=== PATIENT | female | born 1965 | race Caucasian/White ===

== ENCOUNTER 2016-11-19 19:30 | Emergency (ER) | payer OTHER ==
[2016-11-19] MEDS ORDERED: ZOFRAN ODT PO ONE (20:32)
[2016-11-19] MEDS ORDERED: NORCO-7.5 PO ONE (20:32)
--- NOTE | 2016-11-19 20:35 | PROVIDER DOCUMENTATION ---
HPI-Musculoskeletal Pain/Inj - GENERAL Chief Complaint: Extremity Injury Stated Complaint: @1700 RT KNEE INJURY Time Seen by Provider: 11/19/16 20:26 Source: patient - HX OF PRESENT ILLNESS-MUSKULOSKELTAL Nature of Presenting Problem: This pt presents today c complaints of R sided knee pain and swelling after she "took a step funny". She denies any falls. No loss of motor function or sensation. Pt is ambulating. No other injuries or complaints. Quality of Pain: reports: aching Severity in ED: moderate Onset/Duration: 4-6 hours ago Timing: still present Modifying Factors: improves with: movement, palpation Any recent injury?: Yes Locality of Occurance: Home Similar Symptoms Previously?: No Recently seen or treated by another doctor?: No Review of Systems - Adult - REVIEW OF SYSTEMS - ADULT Constitutional: reports: no symptoms reported. denies: chills, fatique Eyes: reports: no symptoms reported. denies: discharge, dry eyes Ears, Nose, Mouth & Throat: reports: no symptoms reported. denies: ear discharge, ear pain Cardiovascular: reports: no symptoms reported. denies: chest pain, edema Respiratory: reports: no symptoms reported. denies: chronic cough, cough Gastrointestinal: reports: no symptoms reported. denies: abdominal pain, hematemesis Genitourinary: reports: no symptoms reported. denies: dysuria, discharge Musculoskeletal: reports: joint pain, joint swelling. denies: bone pain, back pain Integumentary: reports: no symptoms reported. denies: hives, hair loss Neurological: reports: no symptoms reported. denies: ataxia, dizziness/vertigo Psychiatric: reports: no symptoms reported. denies: anxiety, anti-depressant use Endocrine: reports: no symptoms reported Hematologic/Lymphatic: reports: no symptoms reported Allergic/Immunologic: reports: no symptoms reported All Other Systems: Reviewed and Negative Past History - Adult - PAST MEDICAL HISTORY-ADULT Review of Records: reports: Old Records Reviewed, Nursing Assessment Review, Medications Reviewed, Social history reviewed & non-contributory. Major Childhood Illnesses: reports: denies history Cardiovascular: reports: denies history Respiratory: reports: denies history Gastrointestinal: reports: denies history Obstetrical/Gynecological: reports: denies history Genitourinary: reports: denies history Musculoskeletal: reports: denies history Neurological: reports: denies history Endocrine/Immune: reports: Diabetes Other Conditions: reports: denies history - PRIOR SURGERIES/PROCEDURES Surgical/Procedure History: reports: cholecystectomy, orthopedic (extremity), other (tubal) - IMMUNIZATION STATUS Childhood Immunizations: See Nurse Assessment Flu Vaccine: See Nurse Assessment Physical Exam-Injury Related - Physical Exam-Injury Related Initial Vital Signs Reviewed: Yes General Appearance: appears well, alert, no apparent distress Eyes: PERRL/EOMI, pink conjunctivae Head, Ears, Nose, Mouth & Throat: normocephalic/atraumatic, moist mucous membranes, normal ENT inspection Neck: non-tender, full range of motion, supple, normal inspection Respiratory: chest non-tender, lungs clear, normal breath sounds Cardiovascular: normal peripheral pulses, regular rate, rhythm Peripheral Pulses: radial (R): 2+, radial (L): 2+ Abdominal Exam: normal bowel sounds, non tender, soft Back Exam: normal inspection, no CVA tenderness, no vertebral tenderness Extremity: swelling, tenderness. negative: deformity, pulse deficit, pedal edema Integumentary: normal color, warm/dry, blanching Neurologic: grossly normal, no motor/sensory deficits. negative: facial droop, focal weakness, motor weakness, sensory deficit Psych/Mental Status: normal mood/affect, normal thought content, normal thought process, oriented x 3 Progress - PLAN OF CARE/RESULTS Progress/Plan/Lab Results: Orders Category Date Time Status Jarvis Wrap Application DIRECTED Care 11/19/16 20:32 Active KNEE 3 VIEWS RIGHT [RAD] Stat Exams 11/19/16 19:35 Taken Hydrocodone/APAP 7.5 mg/325 mg [[place]-7.5] Med 11/19/16 20:32 Discontinued 1 each PO NOW ONE Ondansetron Odt [Zofran Odt] Med 11/19/16 20:32 Discontinued 4 mg PO NOW ONE Vital Signs Temp Pulse Resp BP Pulse Ox 11/19/16 19:33 97.7 F 83 16 154/59 100 No Known Allergies Allergy (Verified 07/31/16 05:41) Iron,Carbonyl/Ascorbic Acid [Fe C Tablet] 1 each PO DAILY 01/21/15 Metformin HCl 1 each PO BID 01/21/15 Omeprazole 1 each PO DAILY 01/21/15 Escitalopram Oxalate [Lexapro] 20 mg PO DAILY 07/31/16 Lisinopril 10 mg PO BID 07/31/16 Docusate Sodium [Colace] 100 mg PO BID #60 capsule 08/01/16 Hydrocodone/APAP 5 mg/325 mg [[place]-5] 1 each PO Q4H PRN PRN #20 tablet Pt has crutches at home. - XRAY 1 XRAY: Right XRAY Study: Knee XRAY Interpretation: STS; no fx Departure - Departure Time of Disposition Order: 20:34 DIAGNOSIS: Right knee sprain Qualifiers: Encounter type: initial encounter Involved ligament of knee: unspecified ligament Qualified Code(s): S83.91XA - Sprain of unspecified site of right knee , initial encounter Disposition: HOME 01 Certified Medical Emergency: Urgent Condition: Good Additional Instructions: Take medication as prescribed. Rest, ice and elevate. Follow up with an orthopedist. ED Follow Up Instructions: You have been treated by a care provider in the Emergency Department. These instructions are being provided to you so you can have an understanding of how to care for yourself upon discharge. Upon discharge from the Emergency Department, you are responsible for making arrangements for follow-up care by a physician of your choice. Take all prescribed medications as directed. Return to the Emergency Department immediately for any new or worsening symptoms. You may call the Physician Referral phone number at [phone] to obtain a list of Physicians who are taking new patients. Prescriptions: Cyclobenzaprine [Flexeril] 10 mg PO TID #20 tablet Meloxicam [Mobic] 7.5 mg PO DAILY PRN PRN #15 tablet PRN Reason: Pain Referrals: Keron Ogden [Primary Care Provider] - Stefani Wakefield MD [STAFF PHYSICIAN] - Attestation - Physician/ IMAN Attestation Patient care was provided by Advanced Practice Provider:: Yes Advanced Practice Provider:: Jamal Holden Advanced Practice Provider documentation review:: The Mid-level provider documentation, treatment plan and medical decision making was reviewed by the physician who agrees with all treatment and medical decision making by the P.
[2016-11-19 20:53] VITALS: BP 121/58
--- NOTE | 2016-11-20 08:27 | Diag Imaging Result Document ---
PROCEDURE NAME: KNEE 3 VIEWS RIGHT - 11/19/2016 RIGHT KNEE, THREE VIEWS: FINDINGS: There are small patellar bone spurs. Mild medial joint space narrowing. There is bone spurring from the medial femoral condyle and tibial plateau. No fracture. No dislocation. IMPRESSION: 1. No acute bony injury. 2. Moderate arthritis.
== END 2016-11-19 21:26 | disposition home or self-care (01) ==
LOC: ED 19:30
DX: S83.91XA Sprain of unspecified site of right knee, initial encounter (principal); M25.561 Pain in right knee; M25.461 Effusion, right knee; E11.9 Type 2 diabetes mellitus without complications; X58.XXXA Exposure to other specified factors, initial encounter